=== PATIENT | male | born 1955 | race Caucasian/White ===

== ENCOUNTER → 2017-08-23 | Outpatient (CLI) | payer OTHER | END | disposition home or self-care (01) | LOC: KCIC 13:54 | DX: C64.9 Malignant neoplasm of unspecified kidney, except renal pelvis (principal); R05 Cough | CPT/HCPCS: 71046 ==

== ENCOUNTER → 2020-03-24 | Outpatient (CLI) | payer OTHER ==
[~2020-03-24] MED LIST: AMIT25TA PO; AMLO10TA8 PO; ASPI-630 PO; BUTE12CR TP; CITA20TA6 PO; CRESTOR40 MG PO; FINA5TAB4 PO; FLUT16SP NS; GABA300C18 PO; GLIM1TAB7 PO; IOHEXOL 300 MG/ML 100ML VIAL. IV ONE; METH-38 PO; SULF1TAB23 PO; TADA5TAB PO
--- NOTE | 2020-03-24 16:52 | KCIC ---
PQRS Compliance Statement: One or more of the following individualized dose reduction techniques were utilized for this examination: 1. Automated exposure control 2. Adjustment of the mA and/or kV according to patient size 3. Use of iterative reconstruction technique CT SOFT TISSUE NECK W/CONTRAST 03/24/2020 12:00 AM Indication: Neck mass in the left side. History of renal cell carcinoma COMPARISON: None available. TECHNIQUE: Multiple axial CT images of the neck were obtained after the intravenous administration of 95 mL 300. Coronal and sagittal reformats are provided. FINDINGS: No suspicious enhancement is identified involving the visualized portions of the brain parenchyma and posterior fossa. Orbits are normal in appearance. Paranasal sinuses are well aerated. Mastoid air cells are well aerated. Skull base is intact. There is a left base of tongue mass measuring 2.4 x 2.0 x 2.5 cm (AP by transverse by craniocaudal). Evaluation is partly limited due to artifact from dental amalgam. The mass extends anteriorly to the above the left mylohyoid anterolaterally and genioglossus medially. The mass extends posteriorly towards the left oropharynx and inferiorly without definitive involvement of the left piriform sinus, aryepiglottic folds or epiglottis. Nasopharynx is normal in appearance including the fossa of Rosenmuller. Frontal fat is preserved. Left level 2 cervical lymphadenopathy is identified within ill-defined left cervical lymph node measuring 3.5 x 3.1 cm with associated necrosis. A cystic level 2 cervical lymph node is identified measuring 1.9 x 1.7 cm (series 2, image 48). Vascular spaces are intact. No suspicious osseous abnormality is identified. Larynx and trachea are intact. IMPRESSION: 1. There is a mass involving the left base of tongue with partial involvement of the intrinsic tongue muscles and left oropharynx. Findings are suspicious for primary malignancy as may be seen with squamous cell carcinoma. Less likely consideration would include metastatic disease. 2. Left level 2 cervical jeremy disease is suspicious for metastatic disease. Chronic changes are identified within a dominant left cervical lymph node measuring 3.5 x 3.1 cm. Ill-defined margins could reflect extracapsular spread. Electronically signed by: Bere Kapadia MD (03/24/2020 4:49 PM) [id number]
== END | disposition home or self-care (01) ==
LOC: KCIC CT 14:50
PROVIDERS: ATTEND Family Medicine
DX: K14.8 Other diseases of tongue (principal); R22.1 Localized swelling, mass and lump, neck; Z85.528 Personal history of other malignant neoplasm of kidney
CPT/HCPCS: 70491; 82565; Q9967